=== PATIENT | female | born 1960 | race Caucasian/White ===

== ENCOUNTER → 2019-09-14 11:10 | Outpatient (REF) | payer OTHER, SELFPAY | LOC: ANHLAB 11:10 | PROVIDERS: PCP Family Medicine; Visit Provider Nurse Practitioner Family | DX: C44.319 Basal cell carcinoma of skin of other parts of face (principal) | CPT/HCPCS: 88305; 88331 ==

== ENCOUNTER 2023-05-07 08:00 | Outpatient (NON) | payer OTHER, SELFPAY | END 2023-05-07 08:01 | disposition home or self-care (01) | LOC: ANHLAB 05-08 13:50 | PROVIDERS: PCP Family Medicine; Visit Provider Nurse Practitioner | DX: C43.59 Malignant melanoma of other part of trunk (principal) | CPT/HCPCS: 88305 ==

== ENCOUNTER 2023-06-02 12:50 | Outpatient (NON) | payer OTHER, SELFPAY | END 2023-06-02 12:51 | disposition home or self-care (01) | LOC: ANHLAB 06-03 12:52 | PROVIDERS: PCP Family Medicine; Visit Provider Nurse Practitioner | DX: C43.59 Malignant melanoma of other part of trunk (principal) | CPT/HCPCS: 88305 ==